=== PATIENT | female | born 1985 | race Caucasian/White ===

== ENCOUNTER 2020-11-07 11:16 | Emergency (ER) | payer OTHER, SELFPAY ==
[2020-11-07] VITALS (49 sets, daily range): BP systolic 105–135; BP diastolic 67–88; PULSE 62–101; RESP 9–21; TEMP 36.4; O2SAT 89–100
--- NOTE | ~2020-11-07 | XR_ITS ---
EXAMINATION: XR chest 2V 11/07/2020 12:28 INDICATION: Overdose. Respiratory distress. PROCEDURE: AP and lateral views of the chest COMPARISON: No prior studies for comparison. FINDINGS: The lungs are clear. The cardiomediastinal silhouette is within normal limits. There are no pleural effusions. There is no pneumothorax suspected. IMPRESSION: 1: NO ACUTE CARDIOPULMONARY DISEASE. Reviewed, dictated and finalized at location A.
--- NOTE | 2020-11-07 12:08 | ED.OVERDOSE ---
HPI - Overdose General Chief Complaint: Overdose Stated Complaint: OD Time Seen by Provider: 11/07/20 12:03 Source: patient and EMS Mode of arrival: EMS Limitations: no limitations History of Present Illness HPI Narrative: Patient is a 35-year-old female with a history of polysubstance abuse who presents for evaluation following an unintentional drug overdose. Patient states she typically is prescribed gabapentin for muscle aches and pain, was having some lower extremity cramps and has been unable to fill her gabapentin prescription. She then purchased what she thought was some gabapentin from a stranger, and after taking it, was found somnolent and unresponsive at a bus stop. When police arrived, patient was given intranasal Narcan, then when EMS arrived was given intravenous Narcan and patient's mental status returned to baseline. In the room, patient is currently nauseated and tearful. She denies homicidal or suicidal ideation. She denies any chest pain or shortness of breath. Patient also reports methamphetamine use which is chronic. She denies history of IVDA. She reports opiate use a few times before. Related Data Home Medications Medication Instructions Recorded Confirmed Keppra 11/07/20 Allergies Allergy/AdvReac Type Severity Reaction Status Date / Time Penicillins Allergy Unknown Verified 01/11/11 12:13 HYDROCODONE BIT Allergy Unknown Uncoded 08/19/15 08:50 Review of Systems Review of Systems: CONSTITUTIONAL: Denies fever, chills, or sweats. EYES: Denies visual changes, redness, or discharge. ENT: Denies rhinorrhea, congestion, sore throat, or otalgia. CARDIOVASCULAR: Denies chest pain, palpitations, or edema. RESPIRATORY: Denies cough or dyspnea. GASTROINTESTINAL: Denies abdominal pain, reports nausea GENITOURINARY: Denies dysuria or hematuria. SKIN: Denies rash or itching. MUSCULOSKELETAL: Denies back pain, joint pain, reports chronic lower extremity pain NEUROLOGIC: Denies headache, numbness, or weakness. PSYCHIATRIC: Reports history of depression, denies suicidal ideation, denies any plan to harm herself or harm others [facility] Family History Family History (Updated 01/11/11 @ 12:13 by DOCTOR UNKNOWN) Other Asthma Diabetes mellitus Family history of mental disorder Hypertension Social History Social History (Updated 11/07/20 @ 12:31 by Leticia Juarez MD) Smoking status: Current every day smoker Tobacco type: cigarettes and e-cigarettes/vaping Alcohol intake: never Substance use: current Substance use type: sedatives and opiates Gender identity (if verbalized by the patient): Female Exam Narrative: GENERAL: Awake, alert, conversant, tearful HEAD: Normocephalic, atraumatic. EYES: PERRLA and EOMI. ENT: Nares clear, no rhinorrhea or epistaxis. Mucous membranes moist. NECK: Supple. CHEST: No respiratory distress, breathing even and non labored HEART: Tachycardic rate, sinus rhythm ABDOMEN:Non distended, non tender EXTREMITIES: Normal range of motion. No edema. SKIN: Warm, dry, no rash. NEURO:No focal deficits. Alert and oriented x3 Course Vital Signs Vital signs: Vital Signs Pulse Rate 99 11/07/20 11:23 Respiratory Rate 20 11/07/20 11:23 Blood Pressure 111/80 11/07/20 11:23 Pulse Oximetry 99 11/07/20 11:23 Temperature 36.4 C L 11/07/20 11:24 Pulse Rate 72 11/07/20 16:30 Respiratory Rate 20 11/07/20 16:30 Blood Pressure 112/85 11/07/20 14:01 Pulse Oximetry 99 11/07/20 16:56 MDM - Overdose MDM Narrative Medical decision making narrative: Patient is a 35-year-old female that presented for likely accidental opiate overdose. At the time of presentation, patient is somnolent was given additional Narcan. Then awakens to normal mentation, able to explain that she thought she was getting a dose of gabapentin but has been quite somnolent. Patient denies homicidal or suicidal ideation. No other complaints besides mild nausea. Vi
[2020-11-07] MEDS: SODIUM CHLORIDE 0.9% IV 1,000 ML 999 ML IV CONT ×2 (12:44→15:20)
[2020-11-07] MEDS: ONDANSETRON INJ 4 MG/2 ML VIAL IV PUSH ×2 (12:44→17:32)
--- NOTE | 2020-11-07 12:45 | ECG_ITS ---
Measurements Intervals [place] Rate: 71 P: 29 SC: 145 QRS: 3 QRSD: 92 T: 12 QT: 437 QTc: 476 Interpretive Statements SINUS RHYTHM BASELINE WANDER- I, II NORMAL ECG Electronically Signed On 11-07-2020 15:16:49 CDT by Syed Araujo D.O.
--- NOTE | 2020-11-07 12:46 | PC.NURSE ---
Pt. O2 saturation dropping into the 80s, patient is lethargic and has snoring respirations. ERP notified. ERP ordered additional 1mg narcan via ivp via verbal order readback. Pt. arousable. Capnography placed.
[2020-11-07] MEDS: NALOXONE HCL INJ 2 MG/2 ML AMP IV PUSH (13:15)
[2020-11-07 13:19] LABS: Base Excess ABG -4.9 mEq/l (+/-2.0); Carboxyhemoglobin 2.5 % THb (0-2.0); Fractional Inspired Oxygen 21 %; HCO3 ABG 20.9 mEq/l (22.0-26.0); Methemoglobin ABG 0.1 %THb (0-1.5); Oxygen Content ABG 17.9 %vol (16.0-22.0); Oxygen Saturation ABG 90.7 % (95.0-100.0); Oxyhemoglobin 88.2 % THb (90.0-100.0); PCO2 ABG 41.2 mmHg (35.0-45.0); PO2 ABG 63.4 mmHg (80.0-100.0); PO2 FiO2 Ratio Arterial Blood 3.02 %; Reduced Hemoglobin 9.2 %THb (0-5.0); Total Hemoglobin 14.4 g/dL (12.0-18.0); pH ABG 7.323 (7.350-7.450)
[2020-11-07 13:20] LABS: Device ROOM AIR; Modified Allen's Test Pass; Site Drawn LEFT RADIAL
[2020-11-07 14:53] LABS: Alanine Aminotransferase 22 U/L (4-35); Albumin Level 3.9 g/dL (3.5-5.1); Alkaline Phosphatase 71 U/L (38-126); Anion Gap 5 mmol/L (8-16); Aspartate Amino Transferase 25 U/L (14-36); Bilirubin,Total 0.6 mg/dL (0.2-1.3); Blood Urea Nitrogen 15 mg/dL (7-17); Calcium 8.4 mg/dL (8.4-10.2); Carbon Dioxide 22 mmol/L (22-30); Chloride 112 mmol/L (98-107); Estimated CRCL calculation 91 ml/min; Estimated Glomerular Filt Rate > 60; Glucose 106 mg/dL (65-110); Potassium 3.9 mmol/L (3.4-5.0); Sodium 139 mmol/L (137-145)
[2020-11-07 15:40] LABS: Barbiturate Screen Urine Negative (Negative); Benzodiazepines Screen Urine Negative (Negative)
[2020-11-07 15:44] LABS: Add Urine Microscopic? YES; Appearance Urine Cloudy (Clear); Bacteria Urine Trace /hpf; Bilirubin Urine Negative (Negative); Blood Urine 2+ (Negative); Color Urine Yellow (Yellow); Glucose Urine UA Negative (Negative); Ketones Urine Trace mg/dL (Negative); Leukocyte Esterase Ur 3+ LEU/UL (Negative); Nitrate Urine Negative (Negative); Protein Urine 1+ mg/dL (Negative)
[2020-11-07 15:47] LABS: Basophils Absolute Auto 0.1 K/mm3 (0.0-0.1); Basophils Percent Auto 0.3 % (0.2-1.2); Eosinophils Percent Auto 0.1 % (0-4.4); Hematocrit 43.2 % (37.0-47.0); Hemoglobin 14.1 g/dL (12.0-15.0); Immature Granulocyte Absolute 0.09 K/mm3 (0.00-0.031); Immature Granulocyte Percent A 0.5 % (0-0.5); Lymphocytes Absolute Auto 1.28 K/mm3 (0.9-3.2); Lymphocytes Percent Auto 6.6 % (18.3-44.2); Mean Corpuscular HGB Conc 32.6 g/dl (32-36); Mean Corpuscular Hemoglobin 30.8 pg (26-34); Mean Corpuscular Volume 94.3 fl (80-100); Mean Platelet Volume 9.5 fl (7.4-10.4); Monocytes Absolute Auto 0.8 K/mm3 (0.1-0.6); Neutrophils Absolute Auto 17.3 K/mm3 (1.3-6.7); Neutrophils Percent Auto 88.5 % (45.5-73.1); Platelet Count Result 298 k/mm3 (150-375); Red Blood Count 4.58 M/mm3 (4.2-5.4); Red Cell Distribution Width 13.2 % (11.5-14.5); White Blood Count 19.5 K/mm3 (4.5-10.0)
[2020-11-07 15:57] LABS: Cannabinoid Screen Urine Positive (Negative); Cocaine Screen Urine Negative (Negative); Methadone Screen Urine Negative (Negative); Opiate Screen Urine Negative (Negative); Phencyclidine Screen Urine Negative (Negative)
[2020-11-07 16:11] LABS: Amphetamine Screen Urine Positive (Negative)
[2020-11-07 16:58] LABS: Lactic Acid Reflex 1.1 mmol/L (0.7-2.1)
--- NOTE | 2020-11-07 17:18 | PC.NURSE ---
Reg diet tray order for RM 8 @ [id number]
--- NOTE | 2020-11-07 21:28 | PC.NURSE ---
spoke with Andre Iniguez, do not continue narcan drip as long as pts vitals are stable.
[2020-11-07] MEDS: ACETAMINOPHEN 325 MG TABLET 650 MG PO (21:59)
--- NOTE | 2020-11-07 23:00 | PM.IMHP ---
H&P: HPI History of Present Illness Date/Time: 11/07/20 16:00 Chief Complaint: Unintentional drug overdose. Narrative: This is a pleasant 35-year-old female smoker with history of seizure disorder, chronic low back pain, anxiety, and illicit substance abuse who presented to the emergency department earlier today via EMS for evaluation after an unintentional drug overdose. She was in her usual state of health when she got up this morning though she was having pains in her legs as she has been out of her gabapentin. She reports that she borrowed gabapentin from an acquaintance and she was reportedly given 3, 100 mg pills. She took those before she got on the bus to go to work and within a short period of time ?I knew something was wrong? and she reports having a difficult time staying awake. She was then found unresponsive with agonal respirations and EMS was summoned. Her pupils were pinpoint on their arrival and she became more alert and awake after receiving Narcan. While in the emergency department she continued to have episodes where she would follow sleep and desaturate, at times into the 60s, and she is currently on a Narcan drip. She admits to using crack cocaine or methamphetamines, but not daily. She has done fentanyl on 2 occasions and each time she nearly overdosed and has not done that drug intentionally for quite some time though she suspects the pill she was given today may have contained fentanyl by the way she feels. At this time she complains of nausea as well as mild dysuria and pressure in the suprapubic region, similar to when she had UTIs in the past. She denies fever, chills, sweats, vomiting, chest pain, and shortness of breath. Review of Systems Review of Systems: Twelve systems were reviewed with pertinent positives and negatives as per HPI. No sinus congestion, rhinorrhea, otalgia, or odynophagia. She denies chest pain pleuritic pain. No palpitations. No cough or shortness of breath. She denies vomiting and diarrhea. Mild urinary symptoms as detailed in HPI. Last menstrual period was at the end of September 2020. Except as documented, all other systems were reviewed and are negative. [facility] Past Medical History Medical History (Updated 11/07/20 @ 21:04 by Pam Iniguez PA-C) Anxiety Chronic back pain Depression Epilepsy Polysubstance abuse Tobacco dependence Surgical History Surgical History (Updated 11/07/20 @ 21:01 by Pam Iniguez PA-C) History of tubal ligation Family History Family History Other Asthma Diabetes mellitus Family history of mental disorder Hypertension Social History Social History (Updated 11/07/20 @ 21:02 by Pam Iniguez PA-C) Social History: Surrogate decision maker: marianna Correa. Code status: Full code. Smoking status: Current every day smoker Tobacco type: cigarettes Additional smoking assessment comments: Smokes about 1 pack of cigarettes a day. Alcohol intake: never Substance use: current Substance use type: crack/cocaine, methamphetamine and prescription drug Additional living arrangements comments: The patient lives in [place] with her fiancee and mother. She has 4 children. Additional occupation/education comments: Works at a local [employer]. Meds Home Medications and Allergies Home Medications Medication Instructions Recorded Confirmed Type Tomra 11/07/20 History Allergies Allergy/AdvReac Type Severity Reaction Status Date / Time Penicillins Allergy Unknown Verified 01/11/11 12:13 HYDROCODONE BIT Allergy Unknown Uncoded 08/19/15 08:50 Vital Signs Vital Signs - 24 hr 11/07/20 11:23 11/07/20 11:24 11/07/20 11:30 Temperature 97.5 F L Pulse Rate 99 99 99 Respiratory Rate 20 20 20 Blood Pressure 111/80 111/80 Pulse Oximetry 99 98 98 11/07/20 11:31 11/07/20 11:45 11/07/20 11:53 Temperature Pulse Rate 100 95
[2020-11-08] VITALS: BP 133/80; PULSE 70; RESP 14; O2SAT 97
== END 2020-11-07 23:43 | disposition home or self-care (01) ==
PROVIDERS: Emergency Provider Emergency Medicine
DX: T50.901A Poisoning by unspecified drugs, medicaments and biological substances, accidental (unintentional), initial encounter (principal); N39.0 Urinary tract infection, site not specified; F15.10 Other stimulant abuse, uncomplicated; E11.9 Type 2 diabetes mellitus without complications; I10 Essential (primary) hypertension; F17.200 Nicotine dependence, unspecified, uncomplicated; Y92.521 Bus station as the place of occurrence of the external cause
CPT/HCPCS: 36415; 36600; 51701; 71046; 80053; 80307; 81001; 82375; 82805; 83050; 83605; 85025; 87040; 87077; 87086; 87088; 93005; 96365; 96366; 96368; 96372; 96375; 96376; 99284; A9270; J0696; J2310; J2405; J7030; J7050

== ENCOUNTER 2024-12-05 13:41 | Emergency (ER) | payer OTHER, SELFPAY ==
--- OUTSIDE RECORDS SUMMARY | 2024-10-24 19:00 | XMS_ITS | Continuity of Care Document ---
Author Organization [facility] Address [address] [place] [id number] Phone Care Team Providers Care Ship Wirer Name Role Phone Sumit LI, FACJessica, Clayton Unavailable Unavailab le Procedures Procedure Date ELECTROCARDIOGRAM REPORT Advance Directives Directive Yes / No Effective Date File Name No Information Encounters Encounter Description Practice Location Reason(s) For Visit Diagnoses Date Provider Providers Copied on Encounter [facility], [address] [place] [address], [id number], tel:[phone] [facility] No Information Sumit Onealman. [address] [place] [address], [id number], . tel:[phone] Referring Provider: Clayton Arana, [facility] [place], [address]. tel:[phone] Family History Family Member Type Diagnosis Age At Onset No Information Payers Payer name Insurance type Covered alliance party ID Authoriza chelly(s) VIRAJ [facility] [id number] Social History Type Description Quantity Date Captured Comments Sex Female Smoking Status No Information Chief Complaint And Reason For Visit No Information Reason For Referral Reason For Referral No Information History Of Present Illness Encounter Date Complaint History Of Prese nt Illness No Information Functional Status Date Functional Assessmen t No Information Instructions Date Instruction Additional Infor mation No Information Assessments Type Assessment Date No Information Patient Care Teams Name Effective Dates (start - stop) Status Members No Information
--- OUTSIDE RECORDS SUMMARY | 2024-10-24 19:00 | XMS_ITS | Continuity of Care Document ---
Author Organization [facility] Address [address] [place] [phone] Phone Care Team Providers Care Results Engineer Name Role Phone Sumit LI, FACJessica, Clayton Unavailable Unavailab le Procedures Procedure Date ELECTROCARDIOGRAM REPORT Advance Directives Directive Yes / No Effective Date File Name No Information Encounters Encounter Description Practice Location Reason(s) For Visit Diagnoses Date Provider Providers Copied on Encounter [facility], [address] [place] [address], [id number], tel:[phone] [facility] No Information Sumit Onealman. [address] [place] [address], [id number], . tel:[phone] Referring Provider: Clayton Arana, [facility] [place], [address]. tel:[phone] Family History Family Member Type Diagnosis Age At Onset No Information Payers Payer name Insurance type Covered alliance party ID Authoriza chelly(s) VIRAJ [facility] [id number] Social History Type Description Quantity Date Captured [...]
[2024-12-05 13:51] VITALS: BP 139/93; PULSE 66; RESP 17; O2SAT 100
--- NOTE | 2024-12-05 13:53 | ED_ITS ---
HPI - General Adult General Chief complaint: Recheck/Abnormal Lab/Rx Stated complaint: exposed to hepatitis C Time Seen by Provider: 12/05/24 13:53 Source: patient Mode of arrival: ambulatory Limitations: no limitations History of Present Illness HPI narrative: 39 years old white female donates plasma for money, today donation showed that she is positive for hepatitis-C. Last donation before today was 1 week ago. Patient denies any pain, fever, chills, abdominal pain, chest pain, shortness of breath, diarrhea or constipation urinary symptoms. Patient complaining of dental pain for a while got worse lately. Does not have money to go to the dentist. Patient denies any history of blood transfusion, IV drug abuse and has been with the same sexual partner for 21 years. Who is healthy otherwise Related Data Home Medications ?Medication ?Instructions ?Recorded ?Confirmed ?Last Taken ?Type Keppra 11/07/20 Unknown History Allergies Allergy/AdvReac Type Severity Reaction Status Date / Time Penicillins Allergy Unknown Verified 01/11/11 12:13 HYDROCODONE BIT Allergy Unknown Uncoded 08/19/15 08:50 Review of Systems 2 Review of Systems: All systems reviewed & are unremarkable except as noted in HPI and below PMFSH Past Medical History Medical History Chronic back pain Tobacco dependence Anxiety Depression Epilepsy Polysubstance abuse Surgical History Surgical History History of tubal ligation Family History Family History Other Asthma Diabetes mellitus Family history of mental disorder Hypertension Social History Social History Social History: Surrogate decision maker: marianna Correa. Code status: Full code. Smoking status: Current every day smoker Tobacco type: cigarettes Additional smoking assessment comments: Smokes about 1 pack of cigarettes a day. Alcohol intake: never Substance use: current Substance use type: crack/cocaine, methamphetamine and prescription drug Additional living arrangements comments: The patient lives in [place] with her fiancee and mother. She has 4 children. Additional occupation/education comments: Works at a local [employer]. Exam 2 Narrative: General appearance: Well-developed, well-nourished Skin: Normal color Head: Normocephalic, nontraumatic Eyes: Clear conjunctiva ENT: Oropharynx normal, ears normal, nose normal, extensive dental decay and caries Neck: Supple, nontender Chest and respiratory: Airway patent, no respiratory distress, no accessory muscle use Heart: Regular rate/rhythm Abdomen: Soft, nontender, no organomegaly, quiet bowel sounds Vascular: Normal peripheral pulses, normal capillary refill. Musculoskeletal: Normal range of motion, nontender back Neurologic: Alert and oriented ?3, BONDED STRUCTURES REPAIRER is normal as tested, no gross motor deficit Course Vital Signs Vital signs: Vital Signs Pulse Rate 12/05/24 13:51 Respiratory Rate 12/05/24 13:51 Blood Pressure 139/93 H 12/05/24 13:51 Pulse Oximetry 12/05/24 13:51 Oxygen Delivery Room Air 12/05/24 13:51 Pulse Rate 12/05/24 13:51 Respiratory Rate 12/05/24 13:51 Blood Pressure 139/93 H 12/05/24 13:51 Pulse Oximetry 12/05/24 13:51 Oxygen Delivery Room Air 12/05/24 13:51 Medical Decision Making MDM Narrative Medical decision making narrative: Patient was told that her blood is positive for hepatitis C today. Patient donated plasma last week with negative for hepatitis-C. Patient also came with dental pain. Vital signs are stable Physical examination showing extensive dental decay and caries Differential diagnosis extensive dental caries infection, hepatitis C is a possibility, elevated liver enzymes, jaundice Blood workup today include CBC, CMP, hepatitis-C antibody showed insignificant abnormality except hepatitis C antibody screen is reactive indicating that the patient has been infected with the hepatitis C virus at some point in the past Differential Diagnosis Differential Diagnosis: As above Vital Signs Vital Signs: Vital Signs Pulse Rate 12/05/24 13:51 Respiratory Rate 12/05/24 13:51 Blood Pressure 139/93 H 12/05/24 13:51 Pulse Oximetry 12/05/24 13:51 Oxygen Delivery Room Air 12/05/24 13:51 Pulse Rate 12/05/24 13:51 Respiratory Rate 12/05/24 13:51 Blood Pressure 139/93 H 12/05/24 13:51 Pulse Oximetry 100 12/05/24 13:51 Oxygen Delivery Room Air 12/05/24 13:51 Lab Data 12/05/24 15:29 12/05/24 15:29 Labs: Lab Results 12/05/24 Range/Units 15:29 WBC 9.6 (4.5-10.0) K/mm3 RBC 4.76 (4.2-5.4) M/mm3 Hgb 14.5 (12.0-15.0) g/dL Hct 44.4 (37.0-47.0) % MCV 93.3 (80-100) fl MCH 30.5 (26-34) pg MCHC 32.7 (32-36) g/dl RDW 13.4 (11.5-14.5) % Plt Count 325 (150-375) k/mm3 MPV 9.3 (7.4-10.4) fl Immature Gran % (Auto) 0.3 (0-0.5) % Neut % (Auto) 58.6 (45.5-73.1) % Lymph % (Auto) 34.4 (18.3-44.2) % [place] % (Auto) 4.1 (2.6-8.5) % Eos % (Auto) 1.9 (0-4.4) % Baso % (Auto) 0.7 (0.2-1.2) % Lymph # (Auto) 3.31 H (0.9-3.2) K/mm3 [place] # (Auto) 0.4 (0.1-0.6) K/mm3 Eos # (Auto) 0.2 (0-0.3) K/mm3 Baso # (Auto) 0.1 (0.0-0.1) K/mm3 Abs Immat Gran (auto) 0.03 (0.00-0.031) K/mm3 Absolute Neuts (auto) 5.6 (1.3-6.7) K/mm3 Absolute Nucleated RBC 0.000 (0.0-0.012) K/mm3 Nucleated RBC % 0.0 (0.0-0.2) % Sodium 140 (137-145) mmol/L Potassium 4.2 (3.4-5.0) mmol/L Chloride 109 H (98-107) mmol/L Carbon Dioxide 26 (22-30) mmol/L Anion Gap 5 (4-12) mmol/L BUN 11 (7-17) mg/dL Creatinine 0.68 L (0.7-1.0) mg/dL Estim Creat Clear Calc 90 ml/min Estimated GFR > 60 (59 - ) Glucose 85 (65-110) mg/dL Calcium 8.7 (8.4-10.2) mg/dL Total Bilirubin 0.3 (0.2-1.3) mg/dL AST 24 (14-36) U/L ALT 15 (6-35) U/L Alkaline Phosphatase 66 (38-126) U/L Total Protein 6.8 (6.3-8.2) g/dL Albumin 3.9 (3.5-5.1) g/dL Hepatitis C Ab Screen Reactive (Negative) Hepatitis C RNA Quant Pending HCV RNA (PCR) log10 Pending Critical Care Time Critical Care Time Critical Care Time: No Discharge Plan Discharge Clinical Impression: Dental caries, Hepatitis C antibody detected Patient Disposition: Home Condition: Stable Instructions: Antibiotic Form, Toothache (ED) Additional Instructions: Return if symptoms are worsening , call your family physician/dentist for appointment, take ibuprofen as as needed for aches and pain, continue home medications. Hepatitis C test is positive today indicating that you have been infected with hepatitis-C virus at some point in the past Please follow-up with hand booked folder and stitcher for further evaluation. Patient Language: [place] Citizen Prescriptions: New clindamycin HCl [Cleocin HCl] 300 mg capsule 300 mg PO Q6H Qty: 40 0RF ibuprofen [IBU] 800 mg tablet 800 mg PO TID Qty: 20 0RF No Action Keppra cephalexin 500 mg capsule 500 mg PO Q12H 7 Days Qty: 14 0RF Follow-up/Referrals: PHYSICIAN NOT ON STAFF,NONSTAFF [Non-Staff] Catarino Zapata MD [Physician, Gastroenterology] - 12/10/24
[2024-12-05 15:37] LABS: Hematocrit 44.4 % (37.0-47.0); Hemoglobin 14.5 g/dL (12.0-15.0); Immature Granulocyte Percent A 0.3 % (0-0.5); Lymphocytes Absolute Auto 3.31 K/mm3 (0.9-3.2); Mean Corpuscular HGB Conc 32.7 g/dl (32-36); Mean Corpuscular Hemoglobin 30.5 pg (26-34); Mean Corpuscular Volume 93.3 fl (80-100); Nucleated Red Blood Cells Absolute Auto 0.000 K/mm3 (0.0-0.012); Nucleated Red Blood Cells Perc 0.0 % (0.0-0.2); Platelet Count Result 325 k/mm3 (150-375); Red Blood Count 4.76 M/mm3 (4.2-5.4); White Blood Count 9.6 K/mm3 (4.5-10.0)
[2024-12-05 15:48] LABS: Alanine Aminotransferase 15 U/L (6-35); Albumin Level 3.9 g/dL (3.5-5.1); Alkaline Phosphatase 66 U/L (38-126); Anion Gap 5 mmol/L (4-12); Aspartate Amino Transferase 24 U/L (14-36); Bilirubin,Total 0.3 mg/dL (0.2-1.3); Blood Urea Nitrogen 11 mg/dL (7-17); Calcium 8.7 mg/dL (8.4-10.2); Carbon Dioxide 26 mmol/L (22-30); Chloride 109 mmol/L (98-107); Estimated CRCL calculation 90 ml/min; Estimated Glomerular Filt Rate > 60; Glucose 85 mg/dL (65-110); Potassium 4.2 mmol/L (3.4-5.0); Sodium 140 mmol/L (137-145); Total Protein 6.8 g/dL (6.3-8.2)
[2024-12-05] MEDS: IBUPROFEN 400 MG TABLET 800 MG PO (16:49)
[2024-12-05] MEDS: CLINDAMYCIN HCL 150 MG CAP 450 MG PO (16:49)
== END 2024-12-05 17:56 | disposition home or self-care (01) ==
PROVIDERS: Emergency Provider Emergency Medicine
DX: B19.20 Unspecified viral hepatitis C without hepatic coma (principal); K02.9 Dental caries, unspecified; G40.909 Epilepsy, unspecified, not intractable, without status epilepticus; F17.210 Nicotine dependence, cigarettes, uncomplicated
CPT/HCPCS: 36415; 80053; 85025; 86803; 87522; 99283; A9270